=== PATIENT | male | born 1975 | race Caucasian/White ===

== ENCOUNTER 2017-07-21 07:41 | Emergency (ER) | payer BC, OTHER ==
[~2017-07-21] VITALS: Ht 193 cm; Wt 95.3 kg
--- NOTE | ~2017-07-21 | EKG ---
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 : 1975 Requested By: Levy Blair Order Number: [id number] MD: Chris Rothman Measurements Intervals [place] Rate: 51 P: 26 MS: 202 QRS: 39 QRSD: 90 T: 29 QT: 448 QTc: 413 Interpretive Statements Sinus rhythm Borderline prolonged MS interval Probable left ventricular hypertrophy ST elev, probable normal early repol pattern No previous ECG available for comparison Electronically Signed On 07-21-2017 13:52:30 CDT by Chris Rothman [email or web address] <ELECTRONICALLY SIGNED> By: Chris Rothman MD 07/21/17 1352 812 2 Chris Rothman MD /[email or web address]
[2017-07-21 08:56] LABS: HEMATOCRIT 39.8 % (42.0-52.0); HEMOGLOBIN 13.8 gm/dL (14.0-18.0); MCHC 34.8 g/dL (28.0-37.0); MCV 91.9 fL (80.0-100.0); RBC 4.33 mil/uL (4.50-6.00); RDW 11.9 % (10.5-14.5); WBC 5.9 thou/uL (4.0-11.0)
[2017-07-21 08:59] LABS: CALCIUM 8.6 mg/dL (8.5-10.1); CREATININE 1.2 mg/dL (0.7-1.3); POTASSIUM 3.9 mmol/L (3.5-5.1)
[2017-07-21 09:05] LABS: ALBUMIN 3.6 g/dL (3.4-5.0); TOTAL BILIRUBIN 0.6 mg/dL (<0.1-1.0); TOTAL PROTEIN 6.7 g/dL (6.4-8.2)
[2017-07-21 09:39] VITALS: BP 118/67
== END 2017-07-21 09:37 | disposition home or self-care (01) ==
LOC: ER 07:41
PROVIDERS: Emergency Medicine
DX: R42 Dizziness and giddiness (principal)